=== PATIENT | female | born 1990 | race Caucasian/White ===

== ENCOUNTER 2022-07-02 08:56 | Day surgery (SDC) | payer OTHER ==
[2022-06-29 11:07] LABS: COVID AG,FIA SOURCE NASAL SWAB
[~2022-07-02] VITALS: Ht 160 cm; Wt 134.1 kg
[~2022-07-02 08:56] MED LIST: ASCO500 PO; FE F PO; IBUP-2070 PO; METF-1211 PO
[2022-07-02] MEDS ORDERED: SODIUM CHLORIDE 0.9% 1,000 ML IV ONE (09:00)
[2022-07-02] MEDS ORDERED: SODIUM CHLORIDE 0.9% 1,000 ML ONE (09:23)
[2022-07-02] MEDS ORDERED: METF-81 PO (11:22)
[2022-07-02] MEDS ORDERED: FERR325T23 PO (11:22)
[2022-07-02] MEDS ORDERED: PROPOFOL 1% 20 ML VIAL IVP ONE (12:00)
[2022-07-02] MEDS ORDERED: LIDOCAINE/PF 2% 5 ML VIAL IM ONE (12:00)
== END 2022-07-02 12:25 | disposition home or self-care (01) ==
LOC: SURGERY 08:56
PROVIDERS: ATTEND Student in an Organized Health Care Education/Training Program
DX: D50.9 Iron deficiency anemia, unspecified (principal); K20.90 Esophagitis, unspecified without bleeding; K44.9 Diaphragmatic hernia without obstruction or gangrene; K22.2 Esophageal obstruction; K64.8 Other hemorrhoids; K62.5 Hemorrhage of anus and rectum; K21.9 Gastro-esophageal reflux disease without esophagitis; Z79.899 Other long term (current) drug therapy; Z98.890 Other specified postprocedural states
CPT/HCPCS: 87426; 45380; 43239; 88305; 84703; 88312; 88313; C9803; C1769; J2704; J3490; J7030